=== PATIENT | female | born 1955 | race Caucasian/White ===

== ENCOUNTER 2019-07-15 07:30 | Inpatient (IN) | payer BC ==
[2019-10-16] MEDS ORDERED: Lactated Ringers 1000 ml BAG 1,000 ML IV SCH (06:00)
[2019-10-16] MEDS ORDERED: ceFAZolin 2 GM PREMIX in ORs 2 GM/50 ML BAG ONE (07:01)
[2019-10-16] MEDS ORDERED: Vancomycin(*) 1,000 MG VIAL ONE (07:55)
[2019-10-16] MEDS ORDERED: Midazolam 5 mg/5 ml VIAL 1 mg/ml 5 ml VIAL (5 mg) ONE (08:26)
[2019-10-16] MEDS ORDERED: fentaNYL 100 mcg/2 ml 50 MCG/ML VIAL ONE ×5 (08:26→13:57)
[2019-10-16] MEDS ORDERED: ROPIVACAINE 5 MG/ML 30 ML BTL (0.5%) ONE (08:31)
[2019-10-16] MEDS ORDERED: Bupivacaine 0.5% SDV PF 30ML VIAL ONE (08:38)
[2019-10-16] MEDS ORDERED: Rocuronium 50 mg VIAL 10 mg/ml 5 ml VIAL (50 mg) ONE ×2 (08:56→11:26)
[2019-10-16] MEDS ORDERED: Propofol 10 MG/ML 20 ML BTL ONE (08:57)
[2019-10-16] MEDS ORDERED: Ondansetron 4 mg VIAL 2 MG/ML 2 ml VIAL ONE (08:57)
[2019-10-16] MEDS ORDERED: Dexamethasone IV 4 MG/ML VIAL 1 ml VIAL ONE (08:57)
[2019-10-16] MEDS ORDERED: DiMENhydriNATE IV 50 mg/ml 1 ml VIAL IV PUSH PRN (09:41)
[2019-10-16] MEDS ORDERED: HYDROcodone/ACETAMIN 5/325 mg TAB PO PRN (09:41)
[2019-10-16] MEDS ORDERED: Naloxone 0.4 mg VIAL 0.4 mg/ml 1 ml VIAL IV PRN (09:41)
[2019-10-16] MEDS ORDERED: Levalbuterol 0.63MG/3ML NEB UNIT OF USE INH PRN (09:41)
[2019-10-16] MEDS ORDERED: Ondansetron 4 mg VIAL 2 MG/ML 2 ml VIAL IV PRN ×2 (09:41→12:49)
[2019-10-16] MEDS ORDERED: Dexmedetomidine 200 mcg/2 ml 2 ml VIAL (200 mcg) ONE (09:43)
[2019-10-16] MEDS ORDERED: Morphine 2 MG/ML SYRINGE IV PRN (12:49)
[2019-10-16] MEDS ORDERED: Ondansetron ODT 4 mg TAB 4 MG TAB PO PRN (12:49)
[2019-10-16] MEDS ORDERED: diPHENhydraMINE 25 mg TAB PO PRN (12:49)
[2019-10-16] MEDS ORDERED: Magnesium Hydroxide LIQ 30 ML UDC PO PRN (12:49)
[2019-10-16] MEDS ORDERED: Lactulose 30 ml UDC PO PRN (12:49)
[2019-10-16] MEDS ORDERED: oxyCODONE/Acetamin 5/325 mg TAB PO PRN ×2 (12:49)
[2019-10-16] MEDS ORDERED: diPHENhydraMINE IV 50 MG/ML 1 ml VIAL (BENADRYL) IV PRN (12:49)
[2019-10-16] MEDS ORDERED: Polyethylene Glycol 3350 17 GM PACKET PO PRN (12:56)
[2019-10-16] MEDS: fentaNYL 100 mcg/2 ml 50 MCG/ML VIAL IV PRN ×5 (13:03→14:00)
[2019-10-16] MEDS ORDERED: HYDROcodone/ACETAMIN 5/325 mg TAB ONE (13:22)
[2019-10-16] MEDS ORDERED: HYDROmorphone 1 MG/1 ML SYRINGE ONE (14:18)
[2019-10-16] MEDS ORDERED: Albuterol HFA INHALER 8 gm MDI INH PRN (14:54)
[2019-10-16] MEDS: Lactated Ringers 1000 ml BAG 1,000 ML IV SCH (15:40)
[2019-10-16] MEDS: ceFAZolin 1 GM ADVAN(*) 1 GM in NS 0.9% 50 ML 50 ML IVPB SCH (17:04)
[2019-10-16] MEDS: Mometasone/Formoter 200/5 MDI INH SCH (20:39)
[2019-10-17] MEDS: ceFAZolin 1 GM ADVAN(*) 1 GM in NS 0.9% 50 ML 50 ML IVPB SCH ×2 (01:14→09:43)
[2019-10-17] MEDS: Lactated Ringers 1000 ml BAG 1,000 ML IV SCH (02:26)
[2019-10-17 05:19] LABS: Hematocrit 28 % (35-47); Hemoglobin 9.7 g/dL (12.0-16.0); Mean Platelet Volume 9.3 fL (7.4-10.4); Platelet Count 185 10^3/uL (150-450)
[2019-10-17 05:37] LABS: BUN/Creatinine Ratio 24.4 (8-20); Calcium 8.9 mg/dL (8.6-10.3); EGFR African American 80.1 (>60); EGFR Non-African American 66.2 (>60)
[2019-10-17] MEDS: Mometasone/Formoter 200/5 MDI INH SCH (08:33)
[2019-10-17 11:51] VITALS: BP 128/59
== END 2019-10-17 14:45 | disposition home or self-care (01) | DRG 322 ==
LOC: AA 10-16 06:25 → SSU 10-16 12:49
PROVIDERS: ADMIT Orthopaedic Surgery; ATTEND Orthopaedic Surgery